=== PATIENT | male | born 1980 | race Caucasian/White ===

== ENCOUNTER 2022-07-02 13:23 | Outpatient (CLI) | payer OTHER, SELFPAY ==
[2022-07-03 16:03] LABS: Albumin* 4.8 g/dL (3.3-5.0)
[2022-07-03 16:04] LABS: Chloride* 103 mmol/L (96-114); Potassium* 4.2 mmol/L (3.6-5.1); Sodium* 140 mmol/L (135-149)
[2022-07-03 16:06] LABS: Alkaline Phosphatase* 76 U/L (40-150); Aspartate Amino Transferase* 38 U/L (12-35); Bilirubin Total* 0.6 mg/dL (0.1-1.5); Blood Urea Nitrogen* 10 mg/dL (5-24); Carbon Dioxide* 25 mmol/L (20-32); Cholesterol* 206 mg/dL (90-199); Creatinine* 0.8 mg/dL (0.5-1.5); Estimated Glomerular Filt Rate 113 ml/min; Total Protein* 7.8 g/dL (6.0-8.3)
[2022-07-03 16:07] LABS: Alanine Aminotransferase* 56 U/L (4-50); Glucose* 99 mg/dL (60-115); HDL Cholesterol* 43 mg/dL (>=40); LDL Cholesterol Calculated 99 mg/dL (<100); Triglycerides* 319 mg/dL (40-149)
[2022-07-03 16:08] LABS: Uric Acid* 7.2 mg/dL (2.2-8.4)
== END 2022-07-02 13:24 | disposition home or self-care (01) ==
PROVIDERS: PCP Family Medicine; Visit Provider Family Medicine
DX: Z00.00 Encounter for general adult medical examination without abnormal findings (principal); M10.9 Gout, unspecified; E78.00 Pure hypercholesterolemia, unspecified; R73.9 Hyperglycemia, unspecified; E78.5 Hyperlipidemia, unspecified
CPT/HCPCS: 80053; 80061; 84550

== ENCOUNTER 2023-11-04 12:45 | Outpatient (CLI) | payer OTHER, SELFPAY | END 2023-11-04 12:46 | disposition home or self-care (01) | LOC: NFLDREF 11-07 08:45 | PROVIDERS: PCP Family Medicine; Referring Provider Family Medicine; Visit Provider Family Medicine | DX: Z00.00 Encounter for general adult medical examination without abnormal findings (principal); E66.3 Overweight; E78.00 Pure hypercholesterolemia, unspecified; R73.9 Hyperglycemia, unspecified; D61.818 Other pancytopenia; M10.9 Gout, unspecified; E66.9 Obesity, unspecified; K21.9 Gastro-esophageal reflux disease without esophagitis | CPT/HCPCS: 80053; 80061; 84550 ==

== ENCOUNTER 2024-01-19 09:08 | Outpatient (CLI) | payer OTHER, SELFPAY | END 2024-01-19 09:09 | disposition home or self-care (01) | LOC: NFLDREF 01-23 15:18 | PROVIDERS: PCP Family Medicine; Referring Provider Family Medicine; Visit Provider Family Medicine | DX: E66.3 Overweight (principal); E78.00 Pure hypercholesterolemia, unspecified; R53.83 Other fatigue | CPT/HCPCS: 80053; 80061; 84270; 84402; 84403; 84443 ==

== ENCOUNTER 2025-02-01 08:50 | Outpatient (CLI) | payer OTHER, SELFPAY | END 2025-02-01 08:51 | disposition home or self-care (01) | LOC: NFLDREF 02-04 18:55 | PROVIDERS: PCP Family Medicine; Referring Provider Family Medicine; Visit Provider Family Medicine | DX: R73.9 Hyperglycemia, unspecified (principal); E78.00 Pure hypercholesterolemia, unspecified; M10.9 Gout, unspecified; Z13.1 Encounter for screening for diabetes mellitus | CPT/HCPCS: 80053; 80061; 84550 ==

== ENCOUNTER 2025-02-03 15:13 | Outpatient (CLI) | payer OTHER, SELFPAY | END 2025-02-03 15:14 | disposition home or self-care (01) | LOC: LKVREF 15:14 | PROVIDERS: PCP Family Medicine; Visit Provider Family Medicine | DX: E78.00 Pure hypercholesterolemia, unspecified (principal); E66.3 Overweight; M10.9 Gout, unspecified; D22.9 Melanocytic nevi, unspecified | CPT/HCPCS: 84153; 84154; 84403 ==